=== PATIENT | female | born 1945 | race Caucasian/White ===

== ENCOUNTER 2017-07-18 01:54 | Inpatient (IN) | payer OTHER ==
[~2017-07-18] VITALS: Ht 154.9 cm; Wt 76.3 kg
[~2017-07-18 01:54] MED LIST: ASPIR 8181 M1 PO; BENAZEPRIL HCL20 MG PO; CENTRUM SILV1 TABLE1 PO; COLACE50 MG PO; LOVASTATIN40 MG PO
[2017-07-18 02:59] LABS: CARBON DIOXIDE (BICARBONATE) 31.1 MEQ/L (20-31); HEMATOCRIT 38.3 % (36.0-46.0); MCH 29.1 PG (29.0-34.0); MCHC 33.2 G/DL (30.0-36.0); MCV 87.8 FL (83-99); MEAN PLAT.VOLUME 10.4 uM^3 (9.5-12.4); PLATELET COUNT 159 K/uL (156-360); RBC DIS.WIDTH-CV 12.9 % (11.8-14.6); RBC DIS.WIDTH-SD 41.8 % (39-53); RED BLOOD COUNT 4.36 M/uL (3.80-5.20); WHITE BLOOD COUNT 5.9 K/uL (4.1-10.2)
[2017-07-18 03:07] LABS: CHLORIDE 101 mEq/L (99-109); POTASSIUM 3.9 mEq/L (3.7-5.4); SODIUM 138 mEq/L (136-147)
[2017-07-18 03:10] LABS: GLUCOSE 135 mg/dL (70-99)
[2017-07-18 03:11] LABS: ANION GAP 13 MEQ/L (2-14); TOTAL BILIRUBIN 0.6 mg/dL (0.0-1.0)
[2017-07-18 03:13] LABS: ALKALINE PHOSPHATASE 180 IU/L (3-129); GFR ESTIMATE (CALCULATED) > 59 mL/min/
[2017-07-18 03:14] LABS: UREA NITROGEN (BUN) 21 mg/dL (9-23)
[2017-07-18 03:15] LABS: DIRECT BILIRUBIN 0.3 mg/dL (0.0-0.3)
[2017-07-18 03:17] LABS: LIPASE 7 U/L (1.0-51.0)
[2017-07-18 03:18] LABS: ADD MIUA? YES; BILIRUBIN NEGATIVE; BLOOD SMALL; COLOR YELLOW ((YELLOW)); GLUCOSE (STRIP) NEGATIVE; KETONES NEGATIVE; LEUKOCYTES MODERATE; NITRITE NEGATIVE; PROTEIN (STRIP) 30; SPECIFIC GRAVITY 1.023 (1.000-1.030); UROBILINOGEN 0.2 MG/DL (0.2-1.0)
[2017-07-18 03:23] LABS: TROP-I INTERPRETATION NEGATIVE; TROPONIN-I < 0.01 ng/mL (0.0-0.30)
[2017-07-18 03:36] LABS: BACTERIA 1+ /HPF; EPITHELIAL CELLS RARE /HPF; MUCUS TRACE /LPF; UCUL ADDED? YES
[2017-07-18 07:13] VITALS: BP 121/63
[2017-07-18] MEDS ORDERED: LOPRESSOR25 MG PO (07:31)
[2017-07-18] MEDS ORDERED: LOTENSIN HCT1 TABLE2 PO (07:32)
[2017-07-18] MEDS ORDERED: HYDROCHLOROTHIA25 MG PO (07:32)
[2017-07-18] MEDS ORDERED: BENAZEPRIL HCL40 MG PO (07:33)
[2017-07-18] MEDS ORDERED: VITAMIN D31000 UNI2 PO (07:34)
[2017-07-18 12:11] VITALS: BP 111/57
[2017-07-18 18:22] VITALS: BP 133/61
[2017-07-18 19:10] VITALS: BP 126/61
[2017-07-18 23:15] VITALS: BP 138/59
[2017-07-19 03:15] VITALS: BP 143/68
[2017-07-19 06:27] LABS: ALKALINE PHOSPHATASE 125 IU/L (3-129); ANION GAP 7 MEQ/L (2-14); CHLORIDE 106 MEQ/L (99-109); GFR ESTIMATE (CALCULATED) > 59 mL/min/; GLUCOSE 115 mg/dL (70-99); POTASSIUM 3.4 MEQ/L (3.7-5.4); SAMPLE HEMOLYSIS CHECK 0; SAMPLE ICTERIC CHECK 0; SAMPLE LIPEMIA CHECK 0; SODIUM 139 MEQ/L (136-147); TOTAL BILIRUBIN 0.4 MG/DL (0.0-1.0); UREA NITROGEN (BUN) 13 mg/dL (9-23)
[2017-07-19 06:39] LABS: HEMATOCRIT 32.7 % (36.0-46.0); MCHC 32.7 G/DL (30.0-36.0); MCV 88.6 FL (83-99); MEAN PLAT.VOLUME 10.9 uM^3 (9.5-12.4); PLATELET COUNT 114 K/uL (156-360); RBC DIS.WIDTH-CV 13.1 % (11.8-14.6); RBC DIS.WIDTH-SD 42.8 % (39-53); RED BLOOD COUNT 3.69 M/uL (3.80-5.20); WHITE BLOOD COUNT 5.6 K/uL (4.1-10.2)
[2017-07-19 07:35] VITALS: BP 149/64
[2017-07-19] MEDS ORDERED: ELIQUIS5 MG PO ×3 (08:39→08:47)
[2017-07-19] MEDS ORDERED: CEFTIN500 MG PO (08:41)
== END 2017-07-19 11:10 | disposition home or self-care (01) | DRG 689 ==
LOC: EME 01:54 → EDOF 04:44 → ENRESERV 04:45 → 2EAST 07:11
PROVIDERS: Emergency Medicine; Internal Medicine
DX: N39.0 Urinary tract infection, site not specified (principal); I81 Portal vein thrombosis; K83.0 Cholangitis; E78.5 Hyperlipidemia, unspecified; I10 Essential (primary) hypertension; Z60.2 Problems related to living alone; Z90.411 Acquired partial absence of pancreas; Z82.49 Family history of ischemic heart disease and other diseases of the circulatory system; Z80.0 Family history of malignant neoplasm of digestive organs; Z83.3 Family history of diabetes mellitus
CPT/HCPCS: 71020; 74177; 80048; 80053; 80076; 81003; 82272; 82803; 83605; 83690; 83880; 84439; 84443; 84481; 84484; 85027; 85730; 87040; 87086; 93005; 99281; 99285; J0696; J7030; J7050

== ENCOUNTER 2017-07-25 20:14 | Inpatient (IN) | payer OTHER ==
[~2017-07-25] VITALS: Ht 154.9 cm; Wt 75.2 kg
[~2017-07-25 20:14] MED LIST changes: +BENAZEPRIL HCL40 MG PO; +CEFTIN500 MG PO; +ELIQUIS5 MG PO; +HYDROCHLOROTHIA25 MG PO; +LOPRESSOR25 MG PO; +LOTENSIN HCT1 TABLE2 PO; +VITAMIN D31000 UNI2 PO
[2017-07-25 21:46] LABS: HEMATOCRIT 37.1 % (36.0-46.0); MCH 28.9 PG (29.0-34.0); MCHC 33.2 G/DL (30.0-36.0); MCV 87.3 FL (83-99); MEAN PLAT.VOLUME 10.7 uM^3 (9.5-12.4); PLATELET COUNT 204 K/uL (156-360); RED BLOOD COUNT 4.25 M/uL (3.80-5.20); WHITE BLOOD COUNT 10.5 K/uL (4.1-10.2)
[2017-07-25 21:57] LABS: CHLORIDE 101 mEq/L (99-109); POTASSIUM 3.7 mEq/L (3.7-5.4); SODIUM 136 mEq/L (136-147)
[2017-07-25 21:59] LABS: GLUCOSE 140 mg/dL (70-99)
[2017-07-25 22:00] LABS: ANION GAP 15 MEQ/L (2-14)
[2017-07-25 22:01] LABS: TOTAL BILIRUBIN 0.6 mg/dL (0.0-1.0)
[2017-07-25 22:02] LABS: ALKALINE PHOSPHATASE 165 IU/L (3-129)
[2017-07-25 22:03] LABS: GFR ESTIMATE (CALCULATED) > 59 mL/min/
[2017-07-25 22:04] LABS: UREA NITROGEN (BUN) 20 mg/dL (9-23)
[2017-07-25 22:06] LABS: LIPASE 15 U/L (1.0-51.0)
[2017-07-25 22:13] LABS: ADD MIUA? YES; BILIRUBIN NEGATIVE; BLOOD NEGATIVE; COLOR YELLOW ((YELLOW)); GLUCOSE (STRIP) NEGATIVE; KETONES NEGATIVE; LEUKOCYTES TRACE; NITRITE NEGATIVE; PROTEIN (STRIP) NEGATIVE; SPECIFIC GRAVITY 1.017 (1.000-1.030); UROBILINOGEN 0.2 MG/DL (0.2-1.0)
[2017-07-25 22:20] LABS: BACTERIA NONE SEEN /HPF; EPITHELIAL CELLS NONE SEEN /HPF; HYALINE CASTS 0-5 /LPF; MUCUS TRACE /LPF; RED BLOOD CELLS 0-5 /HPF (0-5); UCUL ADDED? NO; WHITE BLOOD CELLS 0-5 /HPF (0-5)
[2017-07-25] MEDS ORDERED: LIVALO2 MG PO (22:52)
[2017-07-25] MEDS ORDERED: CENTRUM SILVER1 EAC4 PO (22:55)
[2017-07-26 01:58] VITALS: BP 132/61
[2017-07-26 04:08] VITALS: BP 108/57
[2017-07-26 08:00] VITALS: BP 120/60
[2017-07-26 12:06] VITALS: BP 111/56
[2017-07-26 14:21] LABS: C DIFF TOXIN POSITIVE (NEGATIVE)
[2017-07-26 14:22] LABS: PROBE CHECK PASS; SPECIMEN PROCESSING CONTROL PASS
[2017-07-26 17:24] VITALS: BP 119/56
[2017-07-26 20:15] VITALS: BP 125/67
[2017-07-27 00:13] VITALS: BP 117/67
[2017-07-27 03:36] VITALS: BP 143/68
[2017-07-27 07:49] LABS: HEMATOCRIT 35.4 % (36.0-46.0); MCHC 33.6 G/DL (30.0-36.0); MCV 89.2 FL (83-99); MEAN PLAT.VOLUME 10.7 uM^3 (9.5-12.4); PLATELET COUNT 186 K/uL (156-360); RBC DIS.WIDTH-CV 13.2 % (11.8-14.6); RBC DIS.WIDTH-SD 43.1 % (39-53); RED BLOOD COUNT 3.97 M/uL (3.80-5.20); WHITE BLOOD COUNT 4.8 K/uL (4.1-10.2)
[2017-07-27 07:54] VITALS: BP 132/68
[2017-07-27 08:21] LABS: ANION GAP 6 MEQ/L (2-14); CHLORIDE 109 MEQ/L (99-109); GFR ESTIMATE (CALCULATED) > 59 mL/min/; SAMPLE HEMOLYSIS CHECK 0; SAMPLE ICTERIC CHECK 0; SAMPLE LIPEMIA CHECK 0; UREA NITROGEN (BUN) 13 mg/dL (9-23)
[2017-07-27 08:33] LABS: GLUCOSE 98 mg/dL (70-99); SODIUM 144 MEQ/L (136-147)
[2017-07-27] MEDS ORDERED: VANCOMYCIN125 MG/2.5 PO (10:38)
== END 2017-07-27 12:12 | disposition home or self-care (01) | DRG 371 ==
LOC: EME 20:14 → EXP 20:14 → 2EAST 23:50 → EDOF 23:50 → ENRESERV 23:52 → 2EAST 07-26 01:38
PROVIDERS: Hospitalist; Internal Medicine; Physician Assistant
DX: A04.7 Enterocolitis due to Clostridium difficile (principal); I10 Essential (primary) hypertension; I81 Portal vein thrombosis; E78.5 Hyperlipidemia, unspecified; Z79.01 Long term (current) use of anticoagulants; Z23 Encounter for immunization; N39.0 Urinary tract infection, site not specified; Z86.73 Personal history of transient ischemic attack (TIA), and cerebral infarction without residual deficits; E04.1 Nontoxic single thyroid nodule
CPT/HCPCS: 76536; 80048; 80053; 81003; 83605; 83690; 84439; 84443; 84480 90; 85027; 87040; 87086; 87493; 90686; 99281; 99285; J0692; J3370; J7030; J7050

== ENCOUNTER 2017-12-02 10:26 | Day surgery (SDC) | payer OTHER ==
[~2017-12-02] VITALS: Ht 154.9 cm; Wt 72.5 kg
[~2017-12-02 10:26] MED LIST changes: +ASPIRIN81 M2 PO; +CENTRUM SILVER1 EAC4 PO; +LIVALO2 MG PO; +LOTENSIN40 MG PO; +OMEPRAZOLE40 M1 PO; +VANCOMYCIN125 MG/2.5 PO
[2017-12-02 11:01] VITALS: BP 152/72
[2017-12-02 13:50] VITALS: BP 126/65
[2017-12-02 14:45] VITALS: BP 135/88
== END 2017-12-02 15:15 | disposition home or self-care (01) ==
LOC: SDC 10:26
DX: N84.0 Polyp of corpus uteri (principal); N95.0 Postmenopausal bleeding; I10 Essential (primary) hypertension; Z86.718 Personal history of other venous thrombosis and embolism; Z79.82 Long term (current) use of aspirin
CPT/HCPCS: 88305; J0690; J1885; J2250; J2405; J3010

== ENCOUNTER 2018-05-27 20:19 | Emergency (ER) | payer OTHER ==
[~2018-05-27] VITALS: Ht 152.4 cm; Wt 73.7 kg
[2018-05-27 21:11] LABS: BASOPHIL (%) 0.3 % (0-1); EOSINOPHIL (%) 0.3 % (0-5); HEMATOCRIT 39.6 % (36.0-46.0); HEMOGLOBIN 13.2 G/DL (11.9-15.5); IMMATURE GRANULOCYTE (%) 0.3 % (0.0-0.7); LYMPHOCYTE (%) 15.1 % (15-42); LYMPHOCYTE COUNT 1.9 K/uL (1.0-2.8); MCH 28.9 PG (29.0-34.0); MCHC 33.3 G/DL (30.0-36.0); MCV 86.7 FL (83-99); NEUTROPHIL COUNT 9.3 K/uL (1.8-6.4); PLATELET COUNT 186 K/uL (156-360); RBC DIS.WIDTH-CV 13.1 % (11.8-14.6); RBC DIS.WIDTH-SD 41.3 % (39-53); RED BLOOD COUNT 4.57 M/uL (3.80-5.20); WHITE BLOOD COUNT 12.2 K/uL (4.1-10.2)
[2018-05-27 21:17] LABS: CHLORIDE 100 mEq/L (99-109); D-DIMER ELISA < 150.00 ng/mLDDU (<230); POTASSIUM 3.8 mEq/L (3.7-5.4); SODIUM 139 mEq/L (136-147)
[2018-05-27 21:19] LABS: GLUCOSE 119 mg/dL (70-99); TOTAL PROTEIN 7.1 g/dL (6.4-8.3)
[2018-05-27 21:21] LABS: TOTAL BILIRUBIN 0.7 mg/dL (0.0-1.0)
[2018-05-27 21:22] LABS: ALKALINE PHOSPHATASE 126 IU/L (3-129)
[2018-05-27 21:23] LABS: CREATININE 0.9 mg/dL (0.6-1.3); GFR ESTIMATE (CALCULATED) > 59 mL/min/
[2018-05-27 21:24] LABS: AST (GOT) 26 IU/L (2-34); DIRECT BILIRUBIN 0.2 mg/dL (0.0-0.3); UREA NITROGEN (BUN) 22 mg/dL (9-23)
[2018-05-27 21:26] LABS: ALT (GPT) 36 IU/L (3-49); LIPASE 75 U/L (1.0-51.0)
[2018-05-27 21:30] LABS: APPEARANCE CLEAR ((CLEAR)); BILIRUBIN NEGATIVE; BLOOD NEGATIVE; COLOR YELLOW ((YELLOW)); GLUCOSE (STRIP) NEGATIVE; KETONES NEGATIVE; LEUKOCYTES NEGATIVE; NITRITE NEGATIVE; PROTEIN (STRIP) NEGATIVE; SPECIFIC GRAVITY 1.015 (1.000-1.030); UROBILINOGEN 0.2 MG/DL (0.2-1.0)
[2018-05-28 01:41] VITALS: BP 136/72
== END 2018-05-28 01:42 | disposition home or self-care (01) ==
LOC: EXP 20:19 → EME 20:19 → EXP 05-28 01:42
PROVIDERS: Physician Assistant
DX: R10.11 Right upper quadrant pain (principal); R35.0 Frequency of micturition; R11.0 Nausea; K57.30 Diverticulosis of large intestine without perforation or abscess without bleeding; J98.11 Atelectasis; Z90.411 Acquired partial absence of pancreas; I10 Essential (primary) hypertension; Z86.73 Personal history of transient ischemic attack (TIA), and cerebral infarction without residual deficits; Z79.82 Long term (current) use of aspirin
CPT/HCPCS: 74177; 76705; 80048; 80076; 81003; 83690; 85025; 85379; 99281; 99284; J3010; J7030

== ENCOUNTER 2018-06-19 22:01 | Inpatient (IN) | payer OTHER ==
[~2018-06-19] VITALS: Ht 162.6 cm; Wt 98.1 kg
[2018-06-19 22:50] LABS: BASOPHIL (%) 0.1 % (0-1); EOSINOPHIL (%) 0.5 % (0-5); EOSINOPHIL COUNT 0.1 K/uL (0-0.3); HEMATOCRIT 41.3 % (36.0-46.0); HEMOGLOBIN 13.6 G/DL (11.9-15.5); IMMATURE GRANULOCYTE (%) 0.6 % (0.0-0.7); LYMPHOCYTE (%) 4.2 % (15-42); LYMPHOCYTE COUNT 0.6 K/uL (1.0-2.8); MCH 29.4 PG (29.0-34.0); MCHC 32.9 G/DL (30.0-36.0); MCV 89.2 FL (83-99); MONOCYTE (%) 0.5 % (3-12); MONOCYTE COUNT 0.1 K/uL (0-0.8); NEUTROPHIL (%) 94.1 % (45-76); NEUTROPHIL COUNT 13.1 K/uL (1.8-6.4); PLATELET COUNT 179 K/uL (156-360); RBC DIS.WIDTH-CV 13.7 % (11.8-14.6); RBC DIS.WIDTH-SD 44.8 % (39-53); RED BLOOD COUNT 4.63 M/uL (3.80-5.20); WHITE BLOOD COUNT 13.9 K/uL (4.1-10.2)
[2018-06-19 22:53] LABS: ALBUMIN 3.9 g/dL (3.2-4.8)
[2018-06-19 22:54] LABS: CHLORIDE 101 mEq/L (99-109); POTASSIUM 3.8 mEq/L (3.7-5.4); SODIUM 138 mEq/L (136-147)
[2018-06-19 22:56] LABS: GLUCOSE 184 mg/dL (70-99); TOTAL PROTEIN 7.1 g/dL (6.4-8.3)
[2018-06-19 22:58] LABS: PTT 22.1 SEC (25-37); TOTAL BILIRUBIN 0.8 mg/dL (0.0-1.0)
[2018-06-19 22:59] LABS: ALKALINE PHOSPHATASE 187 IU/L (3-129)
[2018-06-19 23:00] LABS: CREATININE 1.4 mg/dL (0.6-1.3); GFR ESTIMATE (CALCULATED) 39 mL/min/
[2018-06-19 23:01] LABS: AST (GOT) 178 IU/L (2-34); UREA NITROGEN (BUN) 26 mg/dL (9-23)
[2018-06-19 23:02] LABS: ALT (GPT) 136 IU/L (3-49)
[2018-06-19 23:03] LABS: LIPASE 70 U/L (1.0-51.0)
[2018-06-19 23:08] LABS: TROP-I INTERPRETATION NEGATIVE; TROPONIN-I 0.01 ng/mL (0.0-0.30)
[2018-06-20 00:48] LABS: C DIFF TOXIN NEGATIVE (NEGATIVE)
[2018-06-20 08:22] VITALS: BP 144/64
[2018-06-20 13:25] LABS: ALBUMIN 3.2 g/dL (3.2-4.8)
[2018-06-20 13:29] LABS: TOTAL PROTEIN 5.7 g/dL (6.4-8.3)
[2018-06-20 13:31] LABS: ALKALINE PHOSPHATASE 150 IU/L (3-129)
[2018-06-20 13:32] LABS: TOTAL BILIRUBIN 0.6 mg/dL (0.0-1.0)
[2018-06-20 13:33] LABS: AST (GOT) 99 IU/L (2-34); DIRECT BILIRUBIN 0.3 mg/dL (0.0-0.3)
[2018-06-20 13:34] LABS: ALT (GPT) 124 IU/L (3-49)
[2018-06-20 14:30] LABS: APPEARANCE CLEAR ((CLEAR)); BILIRUBIN NEGATIVE; BLOOD NEGATIVE; COLOR YELLOW ((YELLOW)); GLUCOSE (STRIP) NEGATIVE; KETONES NEGATIVE; LEUKOCYTES NEGATIVE; NITRITE NEGATIVE; PROTEIN (STRIP) NEGATIVE; SPECIFIC GRAVITY 1.013 (1.000-1.030); UCUL ADDED? NO; UROBILINOGEN 0.2 MG/DL (0.2-1.0)
[2018-06-20 15:49] VITALS: BP 147/87
[2018-06-20 19:17] VITALS: BP 131/66
[2018-06-20 23:33] VITALS: BP 131/65
[2018-06-21 05:58] LABS: ALBUMIN 2.9 G/DL (3.2-4.8); ALKALINE PHOSPHATASE 122 IU/L (3-129); ALT (GPT) 88 IU/L (3-49); AST (GOT) 52 IU/L (2-34); CHLORIDE 108 MEQ/L (99-109); POTASSIUM 3.2 MEQ/L (3.7-5.4); SODIUM 141 MEQ/L (136-147); TOTAL BILIRUBIN 0.5 MG/DL (0.0-1.0); TOTAL PROTEIN 5.4 G/DL (6.4-8.3); UREA NITROGEN (BUN) 14 mg/dL (9-23)
[2018-06-21 06:00] LABS: CREATININE 0.9 MG/DL (0.6-1.3); GFR ESTIMATE (CALCULATED) > 59 mL/min/; GLUCOSE 104 mg/dL (70-99)
[2018-06-21 06:47] LABS: HEMATOCRIT 31.1 % (36.0-46.0); MCH 29.2 PG (29.0-34.0); MCHC 32.8 G/DL (30.0-36.0); MCV 89.1 FL (83-99); RBC DIS.WIDTH-CV 13.9 % (11.8-14.6); RBC DIS.WIDTH-SD 45.1 % (39-53); WHITE BLOOD COUNT 7.3 K/uL (4.1-10.2)
[2018-06-21 06:48] LABS: PLAT.SUFFICIENCY DECREASED
[2018-06-21 07:09] VITALS: BP 130/72
[2018-06-21 07:26] LABS: HEMOGLOBIN 10.2 G/DL (11.9-15.5); PLATELET COUNT 94 K/uL (156-360); RED BLOOD COUNT 3.49 M/uL (3.80-5.20)
[2018-06-21 11:04] VITALS: BP 121/65
[2018-06-21 15:17] VITALS: BP 142/67
[2018-06-21 19:50] VITALS: BP 137/65
[2018-06-22 00:36] VITALS: BP 158/72
[2018-06-22 05:00] VITALS: BP 139/65
[2018-06-22 05:40] LABS: BASOPHIL (%) 0.5 % (0-1); EOSINOPHIL (%) 5.7 % (0-5); EOSINOPHIL COUNT 0.4 K/uL (0-0.3); HEMATOCRIT 31.6 % (36.0-46.0); HEMOGLOBIN 10.4 G/DL (11.9-15.5); IMMATURE GRANULOCYTE (%) 0.3 % (0.0-0.7); LYMPHOCYTE COUNT 2.3 K/uL (1.0-2.8); MCH 29.5 PG (29.0-34.0); MCHC 32.9 G/DL (30.0-36.0); MCV 89.5 FL (83-99); MONOCYTE (%) 8.6 % (3-12); MONOCYTE COUNT 0.5 K/uL (0-0.8); NEUTROPHIL (%) 47.9 % (45-76); NEUTROPHIL COUNT 2.9 K/uL (1.8-6.4); PLATELET COUNT 112 K/uL (156-360); RBC DIS.WIDTH-CV 13.8 % (11.8-14.6); RBC DIS.WIDTH-SD 45.1 % (39-53); RED BLOOD COUNT 3.53 M/uL (3.80-5.20); WHITE BLOOD COUNT 6.1 K/uL (4.1-10.2)
[2018-06-22 07:55] VITALS: BP 153/78
[2018-06-22 11:59] VITALS: BP 149/72
[2018-06-22] MEDS ORDERED: URSODIOL300 MG PO (13:55)
[2018-06-22 22:57] LABS: Heparin Induced Plt Ab Negative (Negative)
[2018-06-23 15:57] LABS: UFH SRA Result Negative (Negative)
== END 2018-06-22 15:17 | disposition home or self-care (01) | DRG 391 ==
LOC: EME 22:01 → EDOF 06-20 06:52 → ENRESERV 06-20 07:29 → 4SOUTH 06-20 08:02
PROVIDERS: Emergency Medicine; Hospitalist; Internal Medicine Gastroenterology; Physician Assistant
DX: K52.9 Noninfective gastroenteritis and colitis, unspecified (principal); K83.0 Cholangitis; D69.6 Thrombocytopenia, unspecified; N17.9 Acute kidney failure, unspecified; R74.0 Nonspecific elevation of levels of transaminase and lactic acid dehydrogenase [LDH]; E86.0 Dehydration; E87.2 Acidosis; I81 Portal vein thrombosis; I10 Essential (primary) hypertension; R73.03 Prediabetes; R55 Syncope and collapse; E78.5 Hyperlipidemia, unspecified; Z86.73 Personal history of transient ischemic attack (TIA), and cerebral infarction without residual deficits; Z90.411 Acquired partial absence of pancreas; Z86.19 Personal history of other infectious and parasitic diseases; Z87.19 Personal history of other diseases of the digestive system; Z80.0 Family history of malignant neoplasm of digestive organs; Z82.49 Family history of ischemic heart disease and other diseases of the circulatory system; Z83.3 Family history of diabetes mellitus; Z79.82 Long term (current) use of aspirin
CPT/HCPCS: 71045; 74176; 80053; 80076; 81003; 83605; 83690; 84484; 85025; 85027; 85610; 85730; 86022 90; 87040; 87177; 87329; 87493; 87506; 93005; 99281; 99285; G0378; J1650; J1956; J7030; S0030